=== PATIENT | female | born 1990 | race Two or more races ===

== ENCOUNTER 2024-09-25 00:10 | Emergency (ER) | payer MEDICAID, SELFPAY ==
[2024-09-25 00:11] VITALS: BMI 43.1
[2024-09-25 00:18] VITALS: BP 124/86; PULSE 126; RESP 22; TEMP 37.7; O2SAT 96
[2024-09-25] MEDS: DEXAMETHASONE SOD PHOS INJ 10 MG/ML VIAL PO (00:40)
[2024-09-25] MEDS: predniSONE 20 MG TABLET 40 MG PO (00:40)
[2024-09-25 02:14] VITALS: BP 118/82; PULSE 109; RESP 19; TEMP 37.2; O2SAT 98
--- NOTE | 2024-09-25 02:30 | EDNOTE_ITS ---
ED Asthma RME/HPI General Chief Complaint: Flu Like Symptoms Stated Complaint: COUGH, HARD TO BREATH Time Seen by Provider: 09/25/24 00:22 Arrival date/time: 09/25/24 00:10 34F with history of asthma presents to ED with several days of cough and SOB. Limitations: no limitations Related Data Home Medications ?Medication ?Instructions ?Recorded ?Confirmed Calcium Carbonate * (CALTRATE *) 600 mg PO BID #0 tabs 09/10/15 Previous Rx's ?Medication ?Instructions ?Recorded albuterol sulfate 0.63 mg/3 mL 0.63 mg (3 mL) inhalati on Q4H PRN 05/24/23 solution for nebulization shortness of breath or wheez ing #90 mL promethazine-DM 6.25 mg-15 mg/5 mL 5 ml PO Q6H PRN cou gh #118 mL 05/24/23 oral syrup prednisone 50 mg tablet 50 mg PO QDAY 4 days #4 tabs 09/25/24 Allergies Allergy/AdvReac Type Severity Reaction Status Date / Time naproxen (From Naprosyn) Allergy Verified 05/24/23 06:34 NKA* Allergy Uncoded 09/10/15 16:38 Review of Systems Review of Systems Systems Reviewed: All systems reviewed, normal except as documented Constitutional Constitutional: Reports system reviewed and no additional complaints, except as documented, Denies fever(s) and Denies headache(s) ENT Ears, Nose, Mouth, and Throat: Denies disequilibrium and Denies headache(s) Cardiovascular Cardiovascular: Reports system reviewed and no additional complaints, except as documented, Denies chest pain and Reports dyspnea Respiratory Respiratory: Reports system reviewed and no additional complaints, except as documented, Reports as per HPI, Reports cough and Reports dyspnea Gastrointestinal Gastrointestinal: Reports system reviewed and no additional complaints, except as documented, Denies abdominal pain, Denies nausea and Denies vomiting Neurologic Neurologic: Reports system reviewed and no additional complaints, except as documented, Denies confusion, Denies disequilibrium and Denies headache(s) Psychiatric Psychiatric: Denies confusion Past Medical History Social History SMOKING STATUS: Current some day smoker ED Exam General Limitations: Present no limitations General appearance: Present alert and in no apparent distress Head Head exam: Present atraumatic Eye Eye exam: Present normal appearance, PERRL and EOMI ENT ENT exam: Present normal exam, normal oropharynx and mucous membranes moist Neck Neck exam: Present normal inspection, full ROM and trachea midline Chest Chest inspection: Present normal inspection and symmetric chest wall rise Respiratory Respiratory exam: Present normal lung sounds bilaterally and prolonged expiratory phase Cardiovascular Cardiovascular exam: Present regular rate, normal rhythm and normal heart sounds Abdominal Exam Abdominal exam: Present soft and normal bowel sounds Extremities Exam Extremities exam: Present normal inspection and full ROM Back Exam Back exam: Present normal inspection and full ROM Neurological Exam Neurological exam: Present alert, oriented X3 and CN II-XII intact Psychiatric Psychiatric exam: Present normal affect and normal mood Skin Skin exam: Present warm, dry, intact and normal color Course Quality Measures none Orders Category Date Time Status Bedside Influenza A&B Antigen Test NOW Care 09/25/24 00:26 Completed Dexamethasone Inj [Decadron Inj] Med 09/25/24 00:23 Discontinued 10 mg PO X1 ONE predniSONE Med 09/25/24 00:23 Discontinued 40 mg PO X1 ONE Vital Signs Vital signs: Vital Signs Temperature 99.8 F 09/25/24 00:18 Pulse Rate 126 H 09/25/24 00:18 Respiratory Rate 22 H 09/25/24 00:18 Blood Pressure 124/86 H 09/25/24 00:18 Pulse Oximetry (%) 96 09/25/24 00:18 Oxygen Delivery Method Room Air 09/25/24 00:18 Asthma MDM Narrative MDM Narrative:: 34F with history of asthma presents to ED with several days of cough and SOB. Physical exam reveals clear ENT and lungs. Prolonged expiration. Patient is afebrile, calm, and alert. Steroids relieved symptoms. Likely viral URI causing asthma exacerbation. Patient data External records reviewed:: [facility] previous records Clinical information provided by:: patient Social determinants that could affect healthcare access:: none Patient has the following chronic illnesses:: asthma How is presenting disease/condition affected by chronic disease/condition?: exacerbated by Evaluation data The following diagnostics were reviewed and interpreted by me:: lab results Lab and/or radiology exams considered but not ordered:: ordered Interpretation Summary: above Medications / Prescriptions Medications or Prescriptions considered but not ordered:: ordered Medication administrations:: Medication Administration History Discontinued Medications Dexamethasone Sodium Phosphate (Dexamethasone Sod Phos Inj 10 Mg/Ml Vial) 10 mg PO X1 ONE Stop: 09/25/24 00:24 Last Admin: 09/25/24 00:40 Dose: 10 mg Documented By: OA Prednisone (Prednisone 20 Mg Tablet) 40 mg PO X1 ONE Stop: 09/25/24 00:24 Last Admin: 09/25/24 00:40 Dose: 40 mg Documented By: OA Consultations Consultation(s) initiated? (list below): No Diagnosis Differential diagnosis asthma: Acute exacerbation, Status asthmaticus, Acute asthmatic bronchitis, PE, Pneumonia, COPD exacerbation, Pulmonary edema systolic, Pulmonary edema dystolic, ARDS, Pneumothorax, Foreign body in trachea and other (URI) Most likely diagnosis given after review of the tests above:: URI and asthma exacerbation Admission Indicated Admission indicated?: not indicated Admission Request Was there a request for admission?: No Disposition Plan Disposition Plan: Discharge Discharge Attestation Discharge Attestation: The patient and all family members were given an opportunity to ask questions and understood the discharge instructions. Discharge instructions specifically effects, indications for sooner follow up or return to the emergency department, and the expected course of current diagnosis. Patient condition: Stable Discharge Plan Plan Patient Disposition: HOME (Self Care) Disposition Comment: Stable Prescriptions/Referrals Prescriptions/Med Rec: New prednisone 50 mg tablet 50 mg PO QDAY 4 Days Qty: 4 0RF No Action Calcium Carbonate * (CALTRATE *) 600 MG tablet 600 mg PO BID Qty: 0 albuterol sulfate 0.63 mg/3 mL solution for nebulization 0.63 mg inhalation Q4H PRN (Reason: shortness of breath or wheezing) Qty: 90 0RF promethazine-DM 6.25-15 mg/5 mL syrup 5 ml PO Q6H PRN (Reason: cough) Qty: 118 0RF Referrals: Ruthy Varghese PA-C [Primary Care Provider] - In 1 week Problem List Clinical Impression: Upper respiratory infection, Asthma exacerbation Patient/Caregiver Discharge Instructions Education Materials: ED URI, Viral, No Abx (Adult) Additional Instructions: Please follow-up with PCP within 24-48 hours and return immediately if symptoms worsen. Ibuprofen/Tylenol can be used simultaneously for greater fever/pain control. Benadryl is good for cough, congestion, and sleep. Print Language: Faroese Stand Alone Forms: Patient Portal Info Letter KINA/SEE Supervising Physician CAYDEN Supervising Physician: Dr. Sams
[2024-09-25 02:37] VITALS: RESP 18
== END 2024-09-25 02:38 | disposition home or self-care (01) ==
PROVIDERS: Emergency Provider Emergency Medicine; PCP Physician Assistant Medical
DX: J45.901 Unspecified asthma with (acute) exacerbation (principal); J06.9 Acute upper respiratory infection, unspecified; F17.290 Nicotine dependence, other tobacco product, uncomplicated
CPT/HCPCS: 87400; 99283; J1100; J7512